=== PATIENT | female | born 1995 | race Caucasian/White ===

== ENCOUNTER 2017-03-11 14:45 | Day surgery (SDC) | payer OTHER ==
[~2017-03-11] VITALS: Ht 165.1 cm; Wt 101.9 kg
[2017-03-11] VITALS (7 sets, daily range): BP systolic 117–132; BP diastolic 67–83; PULSE 72–85; TEMP 98.3–98.5
[~2017-03-11 14:45] MED LIST: ACCUTANE; CLINDA DERM TP; DEXILANT30 MG PO; DOXYCYCLINE 10100 MG PO; IMPLANON68 MG ID; LEVAQUIN 5500 MG/TA1 PO; LEVAQUIN 750MG750 M1 PO; MACROBID 1100 MG/CAP PO; NULEV0.125 M1 PO; PREDNISONE20 MG PO; TUSS PO; XANAX .25M0.25 MG/TA PO; ZOFRAN 4MG T4 MG/TAB PO
[2017-03-11] MEDS ORDERED: TYLENOL 500MG500 MG PO (15:19)
[2017-03-11] MEDS ORDERED: LEVAQUIN 5500 MG/TA1 PO (15:20)
== END 2017-03-11 20:45 | disposition home or self-care (01) ==
LOC: SDCO 14:45 → SURG 18:35 → SDCO 20:45
DX: N20.1 Calculus of ureter (principal); Z87.442 Personal history of urinary calculi
CPT/HCPCS: OP; C1769; C2617; J0690; J1100; J1885; J2405; J2704; J3010; J7120; Q9967

== ENCOUNTER → 2019-04-08 | Outpatient (CLI) | payer OTHER ==
[~2019-04-08] MED LIST changes: +TYLENOL 500MG500 MG PO
== END ==
LOC: COL.RAD 10:22
DX: R10.2 Pelvic and perineal pain (principal)